=== PATIENT | female | born 1980 | race Caucasian/White ===

== ENCOUNTER 2020-10-17 17:27 | Outpatient (CLI) | payer OTHER | END 2020-10-17 20:36 | disposition home or self-care (01) | LOC: GENOP 17:27 | DX: O36.8330 Maternal care for abnormalities of the fetal heart rate or rhythm, third trimester, not applicable or unspecified (principal); O99.323 Drug use complicating pregnancy, third trimester; F11.20 Opioid dependence, uncomplicated; Z3A.34 34 weeks gestation of pregnancy | CPT/HCPCS: 59025; 81001 ==

== ENCOUNTER 2020-10-24 08:41 | Inpatient (IN) | payer OTHER ==
[~2020-10-24] VITALS: Ht 165.1 cm; Wt 73.9 kg
[2020-10-24 10:15] LABS: HEMOGLOBIN 15.2 gm/dl (12.3-15.3); RED BLOOD COUNT 4.95 M/UL (4.00-5.10); WHITE BLOOD COUNT 11.7 K/UL (4.5-11.0)
[2020-10-24] MEDS ORDERED: DOCUSATE SODIU100 MG PO (17:59)
[2020-10-24] MEDS ORDERED: IBUPROFEN600 MG PO (17:59)
[2020-10-24] MEDS ORDERED: BUPRENORPHIN-N1 EACH SL (17:59)
[2020-10-25 07:32] LABS: HEMOGLOBIN 11.5 gm/dl (12.3-15.3)
== END 2020-10-25 11:57 | disposition home or self-care (01) | DRG 806 ==
LOC: GENOP 08:41 → OB 09:36
PROVIDERS: ADMIT Obstetrics & Gynecology
PROC: 10E0XZZ Delivery of Products of Conception, External Approach (ICD-10-PCS; principal; 2020-10-24)
PROC: 0UQGXZZ Repair Vagina, External Approach (ICD-10-PCS; 2020-10-24)
PROC: 10907ZC Drainage of Amniotic Fluid, Therapeutic from Products of Conception, Via Natural or Artificial Opening (ICD-10-PCS; 2020-10-24)
PROC: 3E033VJ Introduction of Other Hormone into Peripheral Vein, Percutaneous Approach (ICD-10-PCS; 2020-10-24)
DX: O99.324 Drug use complicating childbirth (principal); F11.20 Opioid dependence, uncomplicated; Z37.0 Single live birth; O71.4 Obstetric high vaginal laceration alone; Z3A.35 35 weeks gestation of pregnancy; Z20.822 Contact with and (suspected) exposure to COVID-19; O76 Abnormality in fetal heart rate and rhythm complicating labor and delivery
CPT/HCPCS: 36415; 51702; 80307; 81001; 82800; 85014; 85018; 85025; 90715; 93005; J2590; J7120; U0002